=== PATIENT | male | born 1975 | race Caucasian/White ===

== ENCOUNTER → 2025-05-09 22:00 | Outpatient (REF) | payer BC, SELFPAY | LOC: DHSLP 22:00 | PROVIDERS: ATTENDING PHYSICIAN Otolaryngology Otolaryngology/Facial Plastic Surgery; FAMILY PHYSICIAN Family Medicine | DX: G47.33 Obstructive sleep apnea (adult) (pediatric) (principal); R06.83 Snoring; J31.0 Chronic rhinitis | CPT/HCPCS: 95806 ==